=== PATIENT | male | born 1955 | race Caucasian/White ===

== ENCOUNTER → 2018-11-28 | Outpatient (CLI) | payer SELFPAY ==
[~2018-11-28] MED LIST: CHOLESTEROL MED; IPR14IN IH; RT-ALBUINH IH; SYMBICORT
--- NOTE | 2018-11-28 14:25 | Diagnostic Imaging Report ---
PROCEDURE: CT chest without contrast. TECHNIQUE: Multiple contiguous axial images were obtained through the chest without the use of intravenous contrast. Auto Exposure Controls were utilized during the CT exam to meet ALARA standards for radiation dose reduction. INDICATION: Generalized edema. FINDINGS: No comparison available. There is some mild atelectasis in the left lower lobe. No suspicious nodules are seen. No edema or pneumonia. No pleural effusion or pneumothorax. The right ventricle is mildly dilated. Aorta is normal in caliber. No axillary, supraclavicular, or mediastinal lymphadenopathy. Limited views of the upper abdomen are unremarkable. There are no suspicious osseous lesions. IMPRESSION: 1. Clear lungs. 2. Dilated right heart. Dictated by: Dictated on workstation # [id number]
== END ==
LOC: RAD 12:57
PROVIDERS: ATTEND Family Medicine
DX: I51.7 Cardiomegaly (principal)
CPT/HCPCS: 71250; 93306